=== PATIENT | male | born 1965 | race Caucasian/White ===

== ENCOUNTER 2019-02-23 22:30 | Emergency (ER) | payer BC ==
[~2019-02-23] VITALS: Ht 177.8 cm; Wt 99.8 kg
[2019-02-23 22:30] VITALS: BP_SYST 166
--- NOTE | 2019-02-23 22:30 | NUR ---
Patient to ER bed 5 for evaluation. Side rails up. Report given to Gracia.
--- NOTE | 2019-02-23 22:50 | NUR ---
Pt came to the ED for a head and neck injury post syncopal episode. Reports that he drank a lot of beer and he smoked marijuana. called 911 after hearing a thud. ran to the kitchen and saw pt unconsciousness. Reports that incident happened around 2100. Denies n/v/d or fever. No other complaints/injuries noted. Will cont. to monitor.
--- NOTE | 2019-02-23 23:22 | NUR ---
Urine sent to lab.
--- NOTE | 2019-02-23 23:37 | NUR ---
ER at bedside examining patient.
[2019-02-23] MEDS ORDERED: ACETAMINOPHEN 500 MG TABLET PO ONE (23:45)
--- NOTE | 2019-02-23 23:52 | NUR ---
Pt went to CT scan via wheelchair.
[2019-02-24] MEDS ORDERED: ACETAMINOPHEN 500 MG TABLET ONE (00:17)
--- NOTE | 2019-02-24 00:55 | NUR ---
Spoke to charge nurse Giuseppe at [facility] and gave report.
[2019-02-24 01:01] LABS: BILIRUBIN,URINE NEGATIVE (NEGATIVE); CLARITY/URINE CLEAR (CLEAR); COLOR,URINE YELLOW (YELLOW); GLUCOSE,URINE NEGATIVE (NEGATIVE); KETONES,URINE NEGATIVE (NEGATIVE); LEUKOCYTE ESTERASE ,URINE NEGATIVE (NEGATIVE); NITRITE, URINE NEGATIVE (NEGATIVE); PROTEIN URINE NEGATIVE (NEGATIVE); UROBILINOGEN,URINE 0.2 (0.2-1.0)
[2019-02-24 01:04] LABS: BLOOD, URINE TRACE (NEGATIVE)
[2019-02-24 01:06] LABS: BASOPHILS # (AUTO) 0.1 K/uL (0.0-0.2); BASOPHILS % (AUTO) 0.7 % (0.0-2.0); EOSINOPHILS # (AUTO) 0.1 K/uL (0.0-0.4); EOSINOPHILS % (AUTO) 1.2 % (0.0-4.0); HEMATOCRIT 47.1 % (36-54); HEMOGLOBIN 16.5 g/dL (14.0-18.0); LYMPHOCYTES # (AUTO) 1.2 K/uL (1.0-5.5); LYMPHOCYTES % (AUTO) 11.6 % (20.5-51.5); MEAN CORPUSCULAR HEMOGLOBIN 33 pg (27-31); MEAN CORPUSCULAR HGB CONC 35 % (32-36); MEAN CORPUSCULAR VOLUME 95 fL (79.0-98.0); MONOCYTES # (AUTO) 0.8 K/uL (0.0-1.0); MONOCYTES % (AUTO) 7.5 % (1.7-9.3); NEUTROPHILS # (AUTO) 8.1 K/uL (1.8-7.7); PLATELET COUNT (AUTO) 160 K/uL (130-430); RED BLOOD CELL COUNT(AUTO) 4.97 MIL/uL (4.2-6.2); RED CELL DISTRIBUTION WIDTH 13.3 % (9.0-15.0); WHITE BLOOD COUNT (AUTO) 10.2 K/uL (4.8-10.8)
[2019-02-24 01:08] LABS: BACTERIA,URINE FEW /HPF (None Seen); WBC,URINE 0-3 /HPF (0-3)
--- NOTE | 2019-02-24 01:08 | NUR ---
Patient to be transferred to [facility]. Is being transferred due to higher level of care. Receiving facility has accepting physician and available space. ER physician has signed transfer form. Patient or responsible green party has agreed to transfer and signed form. Patient belongings inventoried and will be sent with patient. Copy of nursing notes, lab reports, EKG, Physicians Orders and X-rays to be sent with patient. Report called to Zuleyma Chin. at receiving facility. Receiving physician is Dr. Gonzalez. [facility] ambulance service has been called for transfer. ETA is 0120.
[2019-02-24 01:12] LABS: CANNABINOID, URINE POSITIVE (NEG <=50)
[2019-02-24 01:13] LABS: BARBITURATE, URINE NEGATIVE (NEG <=200); BENZODIAZEPINE, URINE NEGATIVE (NEG <=150); COCAINE, URINE NEGATIVE (NEG <=150); METHAMPHETAMINES SCREEN,URINE NEGATIVE (NEG <=500); OPIATE, URINE NEGATIVE (NEG <=100); PHENCYCLIDINE SCREEN,URINE NEGATIVE (NEG <=25); UR TRICYCLIC ANTIDEPRESSANTS NEGATIVE (NEG <=300); URINE AMPHETAMINE NEGATIVE (NEG <=500); URINE METHADONE NEGATIVE (NEG <=200); URINE OXYCODONE SCREEN NEGATIVE (NEG <=100); URINE PROPOXYPHENE SCREEN NEGATIVE (NEG <=300)
[2019-02-24 01:16] LABS: CALCIUM 8.4 mg/dL (8.4-11.0); CREATININE 1.07 mg/dL (0.55-1.30); POTASSIUM 3.4 mmol/L (3.5-5.1)
[2019-02-24 01:17] LABS: PROTHROMBIN TIME 9.8 SECS (9.5-12.5)
[2019-02-24 01:21] LABS: ALBUMIN 3.8 g/dL (3.4-4.8)
--- NOTE | 2019-02-24 01:23 | NUR ---
reported that pt is spitting up some blood. She reported that he normally spits a lot. ER MD Dr. Plascencia made aware.
--- NOTE | 2019-02-24 01:23 | NUR ---
Note trixie in EDM - 02/24/19 at 0338 by [email or web address] reported that pt is spitting up some blood. WOLF Plascencia made aware.
[2019-02-24 01:38] VITALS: BP_SYST 169
--- NOTE | 2019-02-24 01:38 | NUR ---
Pt transferred with [facility] in [facility]. No signs of acute distress. IVs patent.
== END 2019-02-24 01:38 | disposition short-term general hospital (02) ==
LOC: SED 22:30
DX: S02.11GA Other fracture of occiput, right side, initial encounter for closed fracture (principal); S06.6X0A Traumatic subarachnoid hemorrhage without loss of consciousness, initial encounter; S06.5X0A Traumatic subdural hemorrhage without loss of consciousness, initial encounter; W19.XXXA Unspecified fall, initial encounter; Y93.89 Activity, other specified; Y92.009 Unspecified place in unspecified non-institutional (private) residence as the place of occurrence of the external cause; Y99.8 Other external cause status
CPT/HCPCS: 36415; 70450; 72125; 80053; 80307; 81000; 85025; 85610; 99285; G0482

== ENCOUNTER 2021-01-18 10:26 | Emergency (ER) | payer BC ==
[~2021-01-18] VITALS: Ht 180.3 cm; Wt 124.7 kg
--- NOTE | 2021-01-18 10:29 | NUR ---
EKG given to Dr Aguayo at this time .
--- NOTE | 2021-01-18 10:30 | NUR ---
EKG done and given to
--- NOTE | 2021-01-18 10:31 | NUR ---
WOLF Porter at bedside examining patient.
--- NOTE | 2021-01-18 10:32 | NUR ---
Patient to ER bed 4 to gown for evaluation. Side rails up.
--- NOTE | 2021-01-18 10:33 | NUR ---
# 20g and 18g gauge angiocath placed to RAC and LAC. Use of asceptic technique. Opsite placed over site. Blood return noted. Blood for lab drawn from site. Flushed with 10 cc of normal saline. No evidence of infiltration noted. Patient tolerated well.
[2021-01-18] MEDS ORDERED: NITROGLYCERIN 250 ML IV ONE ×2 (10:38→10:45)
[2021-01-18] MEDS ORDERED: ASPIRIN 325 MG TABLET ONE (10:40)
--- NOTE | 2021-01-18 10:40 | NUR ---
Pt arrives from home 01/21, intermittent, right and left sided CP since yesterday morning. Pt did not take anything for the CP. Attributed his chest pain to heart burn. Pt denies any cardiac hx besides HTN. Stopped taking his BP meds. ski base trimmer placed, O2 2l via NC placed. Pt is AAOx4. Speaking in complete sentences.
[2021-01-18] MEDS ORDERED: MORPHINE 4 MG INJ. 4 MG/ML VIAL ONE (10:41)
[2021-01-18] MEDS ORDERED: NITROGLYCERIN LINGUAL 400 mCg/SPRAY ONE (10:42)
[2021-01-18 10:43] VITALS: BP_SYST 158
[2021-01-18] MEDS ORDERED: LORazepam 2 MG/ML VIAL IVP ONE (10:45)
[2021-01-18] MEDS ORDERED: NITROGLYCERIN LINGUAL 400 mCg/SPRAY TL ONE (10:45)
[2021-01-18] MEDS ORDERED: ASPIRIN 81 MG TAB.CHEW PO ONE (10:45)
[2021-01-18] MEDS ORDERED: hydrALAZINE HCL 20 MG/ML VIAL IVP ONE (10:45)
--- NOTE | 2021-01-18 10:48 | NUR ---
second EKG done and given to
--- NOTE | 2021-01-18 10:50 | NUR ---
Nitro spray x 1 given at this time for chest pain.
--- NOTE | 2021-01-18 10:50 | NUR ---
Morphine 4mg, Ativan 1mg, and Aspirin 81mg given per MD order
[2021-01-18 10:54] LABS: EOSINOPHILS % (AUTO) 0.1 % (0.0-4.0); LYMPHOCYTES # (AUTO) 0.9 K/uL (1.0-5.5); WHITE BLOOD COUNT (AUTO) 12.9 K/uL (4.8-10.8)
--- NOTE | 2021-01-18 10:55 | NUR ---
Per Dr Aguayo start Nitro drip at this time, Nitro drip started at 5 MCG/MIN, well tolerated.
--- NOTE | 2021-01-18 10:58 | NUR ---
Dr Aguayo at bedside doing rectal exam .
--- NOTE | 2021-01-18 10:59 | NUR ---
NTG SPRAY GIVEN
[2021-01-18 11:00] VITALS: BP_SYST 192
[2021-01-18 11:00] LABS: BASOPHILS # (AUTO) 0.1 K/uL (0.0-0.2); BASOPHILS % (AUTO) 0.4 % (0.0-2.0); HEMATOCRIT 50.8 % (36-54); HEMOGLOBIN 17.7 g/dL (14.0-18.0); LYMPHOCYTES % (AUTO) 7.1 % (20.5-51.5); MEAN CORPUSCULAR HEMOGLOBIN 33 pg (27-31); MEAN CORPUSCULAR HGB CONC 35 % (32-36); MEAN CORPUSCULAR VOLUME 93 fL (79.0-98.0); MONOCYTES # (AUTO) 0.6 K/uL (0.0-1.0); MONOCYTES % (AUTO) 4.6 % (1.7-9.3); NEUTROPHILS # (AUTO) 11.4 K/uL (1.8-7.7); NEUTROPHILS % (AUTO) 87.8 % (40.0-70.0); PLATELET COUNT (AUTO) 186 K/uL (130-430); RED BLOOD CELL COUNT(AUTO) 5.45 MIL/uL (4.2-6.2); RED CELL DISTRIBUTION WIDTH 13.6 % (9.0-15.0)
[2021-01-18] MEDS ORDERED: MORPHINE 4 MG INJ. 4 MG/ML VIAL IVP ONE (11:00)
--- NOTE | 2021-01-18 11:00 | NUR ---
Nitro drip stoped at this time as ordered by Dr Aguayo, pt being transfer to [place] at this time.
--- NOTE | 2021-01-18 11:00 | NUR ---
Patient to be transferred to [facility]. Is being transferred due to higher level of care. Receiving facility has accepting physician and available space. ER physician has signed transfer form. Patient or responsible democrat has agreed to transfer and signed form. Patient belongings inventoried and will be sent with patient. Copy of nursing notes, lab reports, EKG, Physicians Orders and X-rays to be sent with patient. Report called to Sharron WALTER at receiving facility. Receiving physician is Dr. Mcfarland. [facility] ambulance service has been called for transfer. ETA is now
[2021-01-18 11:09] LABS: CALCIUM 9.2 mg/dL (8.4-11.0); CREATININE 1.13 mg/dL (0.55-1.30); POTASSIUM 3.8 mmol/L (3.5-5.1)
[2021-01-18 11:15] LABS: ALBUMIN 4.2 g/dL (3.4-4.8); TOTAL BILIRUBIN 1.4 mg/dL (0.0-1.0)
[2021-01-18 11:21] LABS: PROTHROMBIN TIME 20.3 SECS (9.5-12.5)
[2021-01-18 11:48] LABS: CKMB RELATIVE INDEX 11.3 (0.0-2.9)
== END 2021-01-18 11:00 | disposition hospice, inpatient (51) ==
LOC: SED 10:26
DX: I21.19 ST elevation (STEMI) myocardial infarction involving other coronary artery of inferior wall (principal); F10.20 Alcohol dependence, uncomplicated; I10 Essential (primary) hypertension; Y90.0 Blood alcohol level of less than 20 mg/100 ml
CPT/HCPCS: 36415; 71045; 80053; 82272; 82550; 82553; 83735; 84484; 85025; 85610; 85730; 93005; 96374; 96375; 99291; G0482; J0360; J2060; J2270; J3490